=== PATIENT | female | born 1945 | race Caucasian/White ===

== ENCOUNTER 2021-12-16 09:44 | Emergency (ER) | payer MEDICARE, OTHER ==
[~2021-12-16] VITALS: Ht 162.6 cm; Wt 65.8 kg
[2021-12-16] MEDS ORDERED: ACETAMINOPHEN 500 MG TABLET PO SCH (09:56)
[2021-12-16] MEDS ORDERED: TETANUS/DIPHTHERIA TOXOID [ADULT] 0.5 ML VIAL IM ONE ×3 (10:00→10:14)
[2021-12-16] MEDS ORDERED: ACETAMINOPHEN 500 MG TABLET ONE (10:07)
[2021-12-16] MEDS ORDERED: OCTYL 2-CYANOACRYLATE 1 EACH TP ONE (11:43)
[2021-12-16] MEDS ORDERED: NAPR375T6 PO (12:52)
[2021-12-16 13:07] VITALS: BP 121/64
== END 2021-12-16 13:18 | disposition home or self-care (01) ==
LOC: EDH 09:44
DX: S72.91XA Unspecified fracture of right femur, initial encounter for closed fracture (principal); S80.811A Abrasion, right lower leg, initial encounter; S80.812A Abrasion, left lower leg, initial encounter; S40.211A Abrasion of right shoulder, initial encounter; S00.211A Abrasion of right eyelid and periocular area, initial encounter; M19.90 Unspecified osteoarthritis, unspecified site; W01.0XXA Fall on same level from slipping, tripping and stumbling without subsequent striking against object, initial encounter; Y93.89 Activity, other specified; Y92.89 Other specified places as the place of occurrence of the external cause; Y99.8 Other external cause status
CPT/HCPCS: 70450; 70486; 71045; 72125; 73030; 90471; 90714